=== PATIENT | female | born 1985 ===

== ENCOUNTER → 2021-04-14 08:37 | Outpatient (CLI) | payer OTHER, SELFPAY ==
[2021-04-14 19:29] LABS: Add Manual Diff / Slide Review NO; Basophils Absolute Auto 0 /uL (0-100); Basophils Percent Auto 0.8 % (0-2); Eosinophils Absolute Auto 100 /uL (0-450); Eosinophils Percent Auto 1.9 % (2-4); Hemoglobin 14.7 g/dL (12.0-16.0); Lymphocytes Absolute Auto 1300 /uL (1100-4500); Lymphocytes Percent Auto 33.3 % (25-40); Mean Corpuscular HGB Conc 34.1 % (30-36); Mean Corpuscular Hemoglobin 31.8 PG (26-34); Mean Corpuscular Volume 93.3 fL (80-100); Monocytes Absolute Auto 400 /uL (0-900); Monocytes Percent Auto 9.6 % (3-14); Neutrophils Absolute Auto 2100 /uL (1500-7000); Neutrophils Percent Auto 54.4 % (50-75); Platelet Count 208 X10^3/uL (150-400); Red Blood Cell Count 4.61 X10^6/uL (4.0-5.2); Red Cell Distribution Width 13.3 % (11.6-14.8); White Blood Cell Count 3.9 X10^3/uL (4.5-11.0)
[2021-04-14 19:41] LABS: Alanine Aminotransferase 17 IU/L (<35); Albumin 4.4 g/dL (3.5-5.0); Albumin Globulin Ratio 1.5 (1.0-2.8); Alkaline Phosphatase 54 U/L (38-126); Aspartate Aminotransferase 27 IU/L (14-36); BUN Creatinine Ratio 12.2 (6-22); Bilirubin Total 1.6 mg/dL (0.2-1.3); Blood Urea Nitrogen 10 mg/dL (7-17); Calcium 9.5 mg/dL (8.4-10.2); Carbon Dioxide 28 mmol/L (22-32); Chloride 103 mmol/L (98-107); Estimated Glomerular Filt Rate > 60.0 mL/min (>60); Glucose 89 mg/dL (70-100); HEMOLYSIS 19 (0-50); Potassium 3.7 mmol/L (3.4-5.1); Sodium 137 mmol/L (137-145); Total Protein 7.4 g/dL (6.3-8.2)
[2021-04-14 20:13] LABS: Ferritin 27 ng/mL (6-137)
[2021-04-15 20:11] LABS: Cholesterol HDL Ratio 2.3 ratio (0.0-4.4); Cholesterol,Total 187 mg/dL (100-199); HDL Cholesterol 80 mg/dL (>39); LDL Cholesterol Cal 95 mg/dL (0-99); Triglycerides 62 mg/dL (0-149); VLDL Cholesterol Cal 12 mg/dL (5-40)
== END ==
PROVIDERS: Naturopath; PCP Physician Assistant
DX: Z00.00 Encounter for general adult medical examination without abnormal findings (principal); Z12.4 Encounter for screening for malignant neoplasm of cervix; N76.2 Acute vulvitis; R14.0 Abdominal distension (gaseous); R10.9 Unspecified abdominal pain
CPT/HCPCS: 80053; 80061; 82728; 85025

== ENCOUNTER → 2021-09-10 13:34 | Outpatient (CLI) | payer OTHER, SELFPAY ==
[2021-09-12 15:07] LABS: C difficie Toxins A and B, EIA Negative (Negative); Fecal Immunochemical Test Negative (Negative)
[2021-09-17 15:36] LABS: Calprotectin, Stool 31 ug/g (0-120)
[2021-09-23 12:36] LABS: Cryptosporidium Smear,Stool None seen (None seen); Isospora Smear, Stool None seen (None seen)
== END ==
PROVIDERS: PCP Physician Assistant; Visit Provider Naturopath
DX: R14.0 Abdominal distension (gaseous) (principal); R10.9 Unspecified abdominal pain; R19.7 Diarrhea, unspecified
CPT/HCPCS: 82274; 83993; 87015; 87206; 87324; 87337